=== PATIENT | female | born 1975 | race Caucasian/White ===

== ENCOUNTER 2016-08-18 07:03 | Emergency (ER) | payer OTHER ==
[2016-08-18 07:31] VITALS: BP 140/100; PULSE 90; RESP 18; TEMP 98; O2SAT 97
--- NOTE | 2016-08-18 08:08 | UCPHY ---
H & P Time Seen by Provider: 08/18/16 07:25 Patient Type: Established HPI/ROS: CHIEF COMPLAINT: Left foot pain HISTORY OF PRESENT ILLNESS: 41-year-old female presents with left foot pain. Yesterday evening she was walking her dog, slipped and twisted her left foot. She was able to walk home. She woke up this morning with increased pain. Pain occurs when she walks only. No associated symptoms and no other injuries. ROS: No numbness, weakness, bleeding, syncopal episode, other injury. Past Medical/Surgical History: Denies Smoking Status: Never smoked Physical Exam: Alert, pleasant Extremities: Left foot-mild tenderness over the medial aspect of the 1st metacarpal, no associated swelling; no ankle tenderness or swelling. Skin: [intact] Neuro: Motor and sensory intact Vascular: Capillary refill brisk distally. Constitutional: Initial Vital Signs Temperature (C) 36.6 C 08/18/16 07:29 Heart Rate 90 08/18/16 07:29 Respiratory Rate 18 08/18/16 07:29 Blood Pressure 140/100 H 08/18/16 07:29 O2 Sat (%) 97 08/18/16 07:29 O2 Delivery Mode Room Air Allergies/Adverse Reactions: Sulfa (Sulfonamide Antibiotics) Allergy (Intermediate, Verified 05/05/15 15:35) Rash tamera Allergy (Verified 05/05/15 15:35) tree nut Allergy (Verified 05/05/15 15:35) Home Medications: Medication Instructions Recorded No Medications [NO HOME 12/18/11 MEDICATIONS] MDM/Departure - MDM Diagnostics: X-ray independently reviewed by me reveals no acute fracture. - Depart Disposition: Home, Routine, Self-Care Clinical Impression: Strain of foot, left Qualifiers: Encounter type: initial encounter Qualified Code(s): S96.912A - Strain of unspecified muscle and tendon at ankle and foot level, left foot, initial encounter Condition: Good Instructions: Muscle Strain (ED) Additional Instructions: Ibuprofen 600 mg 3 times daily while the pain persists. Referrals: Caitlin Young MD [Primary Care Provider] - As per Instructions - PQRS PQRS Measurement: NA
[2016-08-18] MEDS ORDERED: IBUPROFEN 600 MG TAB PO ONE (08:10)
== END 2016-08-18 08:18 | disposition home or self-care (01) ==
LOC: CED 07:03
DX: S96.912A Strain of unspecified muscle and tendon at ankle and foot level, left foot, initial encounter (principal); Y93.K1 Activity, walking an animal; X50.0XXA Overexertion from strenuous movement or load, initial encounter; Y99.8 Other external cause status
CPT/HCPCS: 73630-PO; G0463-PO